=== PATIENT | male | born 1950 | race Caucasian/White ===

== ENCOUNTER 2019-09-21 11:00 | Emergency (ER) | payer MEDICARE, SELFPAY ==
--- NOTE | ~2019-09-21 | US_ITS ---
EXAMINATION: US venous doppler [facility] DATE: 09/21/2019 12:51 INDICATION: Lower limb swelling. TECHNIQUE: Grayscale ultrasound images without and with compression and Doppler ultrasound images of the bilateral lower extremity veins were obtained. COMPARISON: None. FINDINGS: The visualized portions of right common femoral vein, profunda (deep) femoral vein, femoral vein, pop liteal vein, peroneal veins, posterior tibial veins, and greater saphenous vein outflow are patent. The visualized portions of left common femoral vein, profunda femoral vein, femoral vein, popliteal v ein, peroneal veins, posterior tibial veins, and greater saphenous vein outflow are patent. IMPRESSION: 1. No deep venous thrombosis. Reviewed, dictated and finalized at location A. COVERER
--- NOTE | ~2019-09-21 | XR_ITS ---
EXAMINATION: XR chest 1V portable DATE: 09/21/2019 12:58 INDICATION: Cough. TECHNIQUE: A single frontal view of the chest was obtained. COMPARISON: None. FINDINGS: There is mild scarring at the lung apices. There are mild airspace opacities in right mid a nd lower lung zones. No pleural effusion or pneumothorax. The heart size is normal. IMPRESSION: 1. Mild airspace opacities in right mid and lower lung zones, consistent with atelectasis versus pneu monia. Reviewed, dictated and finalized at location A. TY PROFESSIONAL IMPRESSION: 1. Mild airspace opacities in right mid and lower lung zones, consistent with a telectasis versus pneumonia.
[2019-09-21 11:05] VITALS: BP 108/73; PULSE 94; RESP 18; TEMP 37; O2SAT 98
--- NOTE | 2019-09-21 11:09 | ECG_ITS ---
Measurements Intervals [place] Rate: 97 P: 44 IN: 115 QRS: 51 QRSD: 93 T: 45 QT: 310 QTc: 395 Interpretive Statements SINUS RHYTHM WITH SINUS ARRHYTHMIA WITH SHORT IN INTERVAL SUPRAVENTRICULAR BIGEMINY BASELINE ARTIFACT- I, III ABNORMAL ECG Electronically Signed On 09-21-2019 16:56:14 APPEALS ANALYST by Edmond Oswald D.O.
[2019-09-21 11:27] LABS: Basophils Absolute Auto 0.2 K/mm3 (0.0-0.1); Basophils Percent Auto 1.3 % (0.2-1.2); Eosinophils Absolute Auto 0.8 K/mm3 (0-0.3); Eosinophils Percent Auto 5.8 % (0-4.4); Hematocrit 39.8 % (42.0-52.0); Hemoglobin 13.1 g/dL (14.0-18.0); Immature Granulocyte Absolute 0.18 K/mm3 (0.00-0.031); Immature Granulocyte Percent A 1.4 % (0-0.5); Lymphocytes Absolute Auto 1.67 K/mm3 (0.9-3.2); Mean Corpuscular HGB Conc 32.9 g/dl (32-36); Mean Corpuscular Hemoglobin 31.4 pg (26-34); Mean Corpuscular Volume 95.4 fl (80-100); Mean Platelet Volume 9.3 fl (7.4-10.4); Neutrophils Absolute Auto 9.1 K/mm3 (1.3-6.7); Neutrophils Percent Auto 70.5 % (45.5-73.1); Platelet Count Result 254 k/mm3 (150-375); Red Blood Count 4.17 M/mm3 (4.6-6.20); Red Cell Distribution Width 13.8 % (11.5-14.5); White Blood Count 12.9 K/mm3 (4.5-10.0)
[2019-09-21 11:40] LABS: Alanine Aminotransferase 83 U/L (4-50); Albumin Level 4.4 g/dL (3.5-5.1); Alkaline Phosphatase 132 U/L (38-126); Aspartate Amino Transferase 61 U/L (17-59); Bilirubin,Total 0.5 mg/dL (0.2-1.3); Blood Urea Nitrogen 26 mg/dL (9-20); Calcium 10.1 mg/dL (8.4-10.2); Carbon Dioxide 26 mmol/L (22-30); Chloride 93 mmol/L (98-107); Estimated CRCL calculation 55 ml/min; Estimated Glomerular Filt Rate 60; Glucose 208 mg/dL (75-110); Potassium 4.7 mmol/L (3.4-5.0); Sodium 131 mmol/L (137-145)
--- NOTE | 2019-09-21 12:09 | PC.NURSE ---
This RN had to retrieve patient from outside smoking to take back to exam room.
--- NOTE | 2019-09-21 12:11 | ED.GENADULT ---
HPI - General Adult General Chief complaint: Unspecified Stated complaint: feet swelling Time Seen by Provider: 09/21/19 12:10 Source: patient Mode of arrival: wheelchair Limitations: no limitations History of Present Illness HPI narrative: Pt is a 69 y/o male who presents to the ED, via wheelchair, with c/o BLE swelling for 2 days. Pt states that he was D/C 8 days ago from [facility] after having a stroke. He has residual lt sided weakness from his stroke. Pt also has a H/o COPD and DM and he is still an every day smoker. He states that he is dizzy when he stands and his legs feel stiff. Pt denies SOB or a fever. He is supposed to get set up with a home health nurse. complaint: BLE swelling Onset (ago): day(s) (2) Location: lower extremity (PB) Associated symptoms: other (dizziness, PB leg stiffness) Review of Systems Review of Systems: All systems reviewed & are unremarkable except as noted in HPI and below Constitutional: Constitutional: Denies fever(s) Cardiovascular: Cardiovascular: Reports leg edema (bilateral) Respiratory: Respiratory: Denies dyspnea Musculoskeletal: Musculoskeletal: Reports stiffness (BLE) Neurologic: Reports dizziness PMFSH Past Medical History Medical History (Updated 09/21/19 @ 14:58 by Bj Bhandari DO) COPD (chronic obstructive pulmonary disease) CVA (cerebral vascular accident) Diabetes mellitus Surgical History Surgical History (Updated 09/21/19 @ 13:05 by Cleopatra Donahue) No significant past surgical history Social History Social History (Updated 09/21/19 @ 13:05 by Cleopatra Donahue) Smoking status: Current every day smoker Gender identity (if verbalized by the patient): Male Exam Narrative: Exam Narrative: APPEARANCE: No acute distress, nontoxic, resting in bed EYES: EOMI HEENT: Normocephalic, atraumatic, OMM RESPIRATORY: No respiratory distress Clear to auscultation bilaterally with no rhonchi wheezing or rales. CARDIOVASCULAR: Regular rate and rhythm without murmurs rubs or gallops. ABDOMINAL: Soft, nontender, nondistended, no rebound or guarding MUSCULOSKELETAl: Moves all extremities. No clubbing, cyanosis 2+ edema the bilateral lower extremities, no erythema, the bilateral calves soft and nontender, dorsalis pedis pulse 2+ bilaterally Neuro: Awake alert x3, following commands speech normal SKIN:: Warm, dry. No rashes lesions or abrasions PSYCHIATRIC: Normal affect/mood, Course Course Emergency Course: Following chest x-ray views reviewed with patient. Minimal cough no fevers suspect atelectasis and no pneumonia at this time Patient states that since his stroke he has recently been returned home. He states he is not up and moving as much but does have home health set up to come to his house. Discussed with patient results of workup and diagnosis. Discussed need for follow-up with primary care, proper use of medication, and reasons to return to the emergency department. Patient understands and agrees to current treatment plan Vital Signs Vital signs: Vital Signs Temperature 98.6 F 09/21/19 11:05 Pulse Rate 94 09/21/19 11:05 Respiratory Rate 18 09/21/19 11:05 Blood Pressure 108/73 09/21/19 11:05 Pulse Oximetry 98 09/21/19 11:05 Temperature 98.6 F 09/21/19 11:05 Pulse Rate 98 09/21/19 13:26 Respiratory Rate 18 09/21/19 13:26 Blood Pressure 128/87 09/21/19 13:26 Pulse Oximetry 98 09/21/19 13:26 Medical Decision Making Vital Signs Vital Signs: Vital Signs Temperature 98.6 F 09/21/19 11:05 Pulse Rate 94 09/21/19 11:05 Respiratory Rate 18 09/21/19 11:05 Blood Pressure 108/73 09/21/19 11:05 Pulse Oximetry 98 09/21/19 11:05 Temperature 98.6 F 09/21/19 11:05 Pulse Rate 98 09/21/19 13:26 Respiratory Rate 18 09/21/19 13:26 Blood Pressure 128/87 09/21/19 13:26 Pulse Oximetry 98 09/21/19 13:26 Lab Data Result diagrams: 09/21/19 11:15 09/21/19 11:15
--- NOTE | 2019-09-21 12:26 | PC.NURSE ---
Pt taken to ultrasound
[2019-09-21 13:06] LABS: NT Pro B Type Natriuretic Pept 30 PG/ML (5-100)
[2019-09-21 13:16] LABS: Add Urine Microscopic? NO; Appearance Urine Clear (Clear); Bilirubin Urine Negative (Negative); Blood Urine Negative (Negative); Color Urine Yellow (Yellow); Glucose Urine UA Negative (Negative); Ketones Urine Negative (Negative); Leukocyte Esterase Ur Negative LEU/UL (Negative); Nitrate Urine Negative (Negative); Protein Urine Negative (Negative); Specific Grav Ur 1.012 (1.001-1.035); Urobilinogen Urine Negative mg/dL (<2.0)
[2019-09-21 13:26] VITALS: BP 128/87; PULSE 98; RESP 18; O2SAT 98
[2019-09-21 13:26] LABS: Prothrombin Time 12.4 Seconds (11.1-14.7)
[2019-09-21 13:27] LABS: Partial Thromboplastin Time 29.7 SECONDS (22.3-36.8)
== END 2019-09-21 15:18 | disposition home or self-care (01) ==
PROVIDERS: Emergency Provider Emergency Medicine
DX: R60.0 Localized edema (principal); J44.9 Chronic obstructive pulmonary disease, unspecified; E11.9 Type 2 diabetes mellitus without complications; F17.210 Nicotine dependence, cigarettes, uncomplicated; R42 Dizziness and giddiness; I69.354 Hemiplegia and hemiparesis following cerebral infarction affecting left non-dominant side; R00.8 Other abnormalities of heart beat
CPT/HCPCS: 36415; 71045; 80053; 81003; 83880; 85025; 85610; 85730; 93005; 93970; 99284

== ENCOUNTER 2020-04-14 04:18 | Observation (INO) | payer MEDICARE, SELFPAY ==
[2020-04-14] VITALS (9 sets, daily range): BP systolic 97–126; BP diastolic 47–93; PULSE 55–99; RESP 16–18; TEMP 36.3–36.9; O2SAT 94–97
--- NOTE | ~2020-04-14 | XR_ITS ---
EXAMINATION: XR chest 1V portable EXAM DATE: 04/14/2020 04:49 INDICATION: Cough. TECHNIQUE: Frontal and lateral projections of the chest obtained and reviewed. Comparison is made to prior examination from 09/21/2019. FINDINGS: The lungs are clear. There are no pleural effusions. The cardiomediastinal silhouette is within normal limits. There is no pneumothorax suspected. The bones and soft tissues are unremarkab le. IMPRESSION: No acute cardiopulmonary findings. Reviewed, dictated and finalized at location A.
[2020-04-14 04:41] LABS: Basophils Absolute Auto 0.2 K/mm3 (0.0-0.1); Basophils Percent Auto 0.9 % (0.2-1.2); Eosinophils Absolute Auto 0.7 K/mm3 (0-0.3); Eosinophils Percent Auto 3.7 % (0-4.4); Hematocrit 36.4 % (42.0-52.0); Hemoglobin 12.1 g/dL (14.0-18.0); Immature Granulocyte Absolute 0.32 K/mm3 (0.00-0.031); Immature Granulocyte Percent A 1.7 % (0-0.5); Lymphocytes Absolute Auto 2.12 K/mm3 (0.9-3.2); Lymphocytes Percent Auto 11.3 % (18.3-44.2); Mean Corpuscular HGB Conc 33.2 g/dl (32-36); Mean Corpuscular Hemoglobin 30.6 pg (26-34); Mean Corpuscular Volume 92.2 fl (80-100); Mean Platelet Volume 8.8 fl (7.4-10.4); Monocytes Absolute Auto 1.1 K/mm3 (0.1-0.6); Monocytes Percent Auto 5.7 % (2.6-8.5); Neutrophils Absolute Auto 14.4 K/mm3 (1.3-6.7); Neutrophils Percent Auto 76.7 % (45.5-73.1); Platelet Count Result 404 k/mm3 (150-375); Red Blood Count 3.95 M/mm3 (4.6-6.20); Red Cell Distribution Width 13.7 % (11.5-14.5); White Blood Count 18.8 K/mm3 (4.5-10.0)
[2020-04-14 04:53] LABS: Anion Gap 7 mmol/L (8-16); Blood Urea Nitrogen 24 mg/dL (9-20); Calcium 9.3 mg/dL (8.4-10.2); Carbon Dioxide 27 mmol/L (22-30); Chloride 102 mmol/L (98-107); Estimated CRCL calculation 63 ml/min; Estimated Glomerular Filt Rate > 60; Glucose 127 mg/dL (75-110); Potassium 4.4 mmol/L (3.4-5.0); Sodium 136 mmol/L (137-145)
--- NOTE | 2020-04-14 05:15 | ED.GENADULT ---
HPI - General Adult General Chief complaint: Unspecified Stated complaint: C/O [facility] LIVING Time Seen by Provider: 04/14/20 04:51 History of Present Illness HPI narrative: Patient is a 69-year-old male who presents the ER with complaint of shortness of breath. Patient reports he is laying in bed at his [facility] when he developed shortness of breath. It lasts about 2 hours. He paged for the nurse to come and help him and it took him 3 hours to respond. He is no longer short of breath. He has no complaints of runny nose/sore throat/productive cough. Denies fever. No chest pain or chest pressure. He reports he ultimately just wants to leave the fdc would like for his son to come get him. He reports he is being worked up for ALS and has had a stroke in the past. Patient was just placed in the fdc yesterday after his son worked a couple of weeks to get him placed. Related Data Home Medications Medication Instructions Recorded Confirmed Unable to Obtain Home Medications 04/14/20 04/14/20 Allergies Allergy/AdvReac Type Severity Reaction Status Date / Time blueberry Allergy Rash Verified 04/14/20 05:55 Review of Systems Review of Systems: All systems reviewed & are unremarkable except as noted in HPI and below Constitutional: Constitutional: Denies chills, Denies fever(s) and Denies weakness ENT: Denies nasal congestion and Denies sore throat Cardiovascular: Cardiovascular: Denies chest pain Respiratory: Respiratory: Denies chest congestion, Denies cough, Reports dyspnea and Denies wheezing Gastrointestinal: Gastrointestinal: Denies abdominal pain, Denies nausea and Denies vomiting PMFSH Past Medical History Medical History (Updated 04/14/20 @ 06:42 by Dakotah Weston MD) COPD (chronic obstructive pulmonary disease) CVA (cerebral vascular accident) Diabetes mellitus Surgical History Surgical History (Updated 09/21/19 @ 13:05 by Cleopatra Donahue) No significant past surgical history Social History Social History (Updated 09/21/19 @ 13:05 by Cleopatra Donahue) Smoking status: Current every day smoker Gender identity (if verbalized by the patient): Male Exam Narrative: Exam Narrative: GENERAL: Well-appearing, well-nourished, and in no acute distress. HEAD: Normocephalic, atraumatic. ENT: Mucous membranes moist. CHEST: Clear to auscultation. No respiratory distress. HEART: Regular rate and rhythm. Normal peripheral pulses. ABDOMEN: Soft, nontender, nondistended. EXTREMITIES: Chronic weakness left upper and lower extremities. No deformity. Trace edema. SKIN: Warm, dry, no rash. NEURO: Alert and oriented x3. Course Course Emergency Course: Reports h/o UTI. Denying sx at this time. Will give ceftriaxone. Would benefit from obs and social service consult. Vital Signs Vital signs: Vital Signs Temperature 98.4 F 04/14/20 04:21 Pulse Rate 96 04/14/20 04:21 Respiratory Rate 18 04/14/20 04:21 Blood Pressure 121/47 L 04/14/20 04:21 Pulse Oximetry 94 04/14/20 04:21 Temperature 98.4 F 04/14/20 04:21 Pulse Rate 95 04/14/20 06:39 Respiratory Rate 16 04/14/20 06:39 Blood Pressure 114/69 04/14/20 06:39 Pulse Oximetry 95 04/14/20 06:39 Medical Decision Making Vital Signs Vital Signs: Vital Signs Temperature 98.4 F 04/14/20 04:21 Pulse Rate 96 04/14/20 04:21 Respiratory Rate 18 04/14/20 04:21 Blood Pressure 121/47 L 04/14/20 04:21 Pulse Oximetry 94 04/14/20 04:21 Temperature 98.4 F 04/14/20 04:21 Pulse Rate 95 04/14/20 06:39 Respiratory Rate 16 04/14/20 06:39 Blood Pressure 114/69 04/14/20 06:39 Pulse Oximetry 95 04/14/20 06:39 Lab Data Result diagrams: 04/14/20 04:36 04/14/20 04:36 Labs: Lab Results 04/14/20 04/14/20 04/14/20 Range/Units 04:36 04:36 05:06 WBC 18.8 H (4.5-10.0) K/mm3 RBC 3.95 L (4.6-6.20) M/mm3 Hgb 12.1 L (14.0-18.0) g/dL
[2020-04-14 05:21] LABS: Add Urine Microscopic? YES; Appearance Urine Cloudy (Clear); Bacteria Urine Trace /hpf; Bilirubin Urine Negative (Negative); Blood Urine 1+ (Negative); Color Urine Yellow (Yellow); Glucose Urine UA Negative (Negative); Ketones Urine Negative (Negative); Leukocyte Esterase Ur 3+ LEU/UL (Negative); Nitrate Urine Positive (Negative); Protein Urine Negative (Negative); Specific Grav Ur 1.016 (1.001-1.035); Urobilinogen Urine Negative mg/dL (<2.0); WBC Clumps Urine Present /HPF; WBC Urine 51-75 /hpf
[2020-04-14 11:58] LABS: Glucose Point of Care 166 (65-105)
[2020-04-14] MEDS: GABAPENTIN 300 MG CAPSULE PO ×2 (12:40→16:24)
[2020-04-14] MEDS: TAMSULOSIN HCL 0.4 MG CAPSULE PO (12:40)
[2020-04-14] MEDS: BACLOFEN 10 MG TABLET PO ×2 (12:40→16:25)
[2020-04-14] MEDS: FUROSEMIDE 20 MG TABLET PO (12:40)
[2020-04-14] MEDS: LOSARTAN POTASSIUM 100 MG TABLET PO (12:40)
[2020-04-14] MEDS: CLOPIDOGREL BISULFATE 75 MG TABLET PO (12:40)
[2020-04-14 17:07] LABS: Glucose Point of Care 100 (65-105)
--- NOTE | 2020-04-14 17:39 | PM.IMHP ---
H&P: HPI History of Present Illness Date/Time: 04/14/20 17:39 Chief complaint: UTI Narrative: Som Ordoñez is a 69 year old male admitted from [place]. did not feel well with sudden SOB called for help no one came so called ambulance. Pt found to have a UTI. Does have a history o f CVA and DM. No so happy to be in a NH. Just got placed there yesterday. Denies SOB now, or cough or fever. CXR looks nil acute. labs WCC is high UA is positive awaiting uC. Review of Systems Review of Systems: All systems reviewed & are unremarkable except as noted in HPI and below PMFSH Past Medical History Medical History COPD (chronic obstructive pulmonary disease) CVA (cerebral vascular accident) Diabetes mellitus Surgical History Surgical History No significant past surgical history Social History Social History Smoking packs per day: 2 Smoking cigarettes per day: 40.0 Years smoked: 50 Smoking pack-years: 100.00 Smoking status: Heavy tobacco smoker Tobacco type: cigarettes Substance use: never Substance use type: does not use Gender identity (if verbalized by the patient): Male Spiritual care concerns: No Meds Home Medications and Allergies Home Medications Medication Instructions Recorded Confirmed Type albuterol sulfate 2 puff INHALATION BID 04/14/20 04/14/20 History atorvastatin 10 mg PO HS 04/14/20 04/14/20 History baclofen 10 mg PO TID 04/14/20 04/14/20 History clopidogrel 75 mg PO DAILY 04/14/20 04/14/20 History furosemide 20 mg PO DAILY 04/14/20 04/14/20 History gabapentin 300 mg PO TID 04/14/20 04/14/20 History losartan 100 mg PO DAILY 04/14/20 04/14/20 History sitagliptin [Januvia] 50 mg PO DAILY 04/14/20 04/14/20 History tamsulosin [Flomax] 0.4 mg PO DAILY 04/14/20 04/14/20 History Allergies Allergy/AdvReac Type Severity Reaction Status Date / Time blueberry Allergy Rash Verified 04/14/20 05:55 Vital Signs Vital Signs - 24 hr 04/14/20 04:21 04/14/20 04:23 04/14/20 04:24 Temperature 36.9 C Pulse Rate 96 96 Respiratory Rate 18 17 Blood Pressure 121/47 L Pulse Oximetry 94 94 04/14/20 06:02 04/14/20 06:39 04/14/20 07:37 Temperature Pulse Rate 99 95 88 Respiratory Rate 18 16 16 Blood Pressure 117/66 114/69 126/93 H Pulse Oximetry 96 95 95 04/14/20 07:45 04/14/20 14:00 Temperature 36.7 C 36.3 C L Pulse Rate 91 55 L Respiratory Rate 18 18 Blood Pressure 115/66 97/54 L Pulse Oximetry 95 97 Exam Const: General: tired appearing HENMT: Head: normocephalic Eyes: General: appearance normal, both eyes and all related structures Pupils: Equal, round and reactive pupils present Neck: Neck: supple Chest: Chest palpation & inspection: normal inspection of the chest Resp: Effort & Inspection: normal respiratory effort Auscultation: clear to auscultation bilaterally Cardio: Jugular venous distension: no JVD Rhythm: regular rhythm Heart sounds: S1 normal heart sound present and S2 normal heart sound present GI: Inspection: normal to inspection GI Palp: No abdominal tenderness, Yes Soft to palpation and No Tenderness to palpation present (GI) Auscultation: normal bowel sounds : General: Yes no CVA tenderness Skin: General skin exam: normal color and dry skin Neuro: Cranial nerves: Yes CN's II-XII intact bilaterally and Yes Equal, round and reactive pupils present Cognition (Neuro): normal cognition Speech: normal speech Motor exam (neuro): 5/5 motor strength present throughout Extrem: General: normal to inspection Psych: Appearance: grossly normal Mental Status: mental status grossly normal H&P: Results Labs Labs: Short CBC 04/14/20 Range/Units 04:36 WBC 18.8 H (4.5-10.0) K/mm3 Hgb 12.1 L (14.0-18.0) g/dL Hct 36.4 L (42.0-52.0) % Plt Count 404 H D (150-3
[2020-04-14] MEDS: SILVERGEL (ELTA) 45 ML 1 APPLIC TOPICAL (18:47)
[2020-04-14] MEDS: ATORVASTATIN 10 MG TABLET PO (19:59)
[2020-04-14] MEDS: ALBUTEROL SULFATE (*SP) AEROSOL 1 PUFF 2 PUFF INHALATION (21:03)
[2020-04-14 22:46] LABS: Glucose Point of Care 160 (65-105)
[2020-04-15 06:00] VITALS: BP 99/60; PULSE 81; RESP 20; TEMP 37; O2SAT 94
[2020-04-15] MEDS: ALBUTEROL SULFATE (*SP) AEROSOL 1 PUFF 2 PUFF INHALATION ×2 (08:22→20:17)
[2020-04-15] MEDS: FUROSEMIDE 20 MG TABLET PO (08:49)
[2020-04-15] MEDS: CLOPIDOGREL BISULFATE 75 MG TABLET PO (08:49)
[2020-04-15] MEDS: BACLOFEN 10 MG TABLET PO ×3 (08:49→16:51)
[2020-04-15] MEDS: LOSARTAN POTASSIUM 100 MG TABLET PO (08:49)
[2020-04-15] MEDS: TAMSULOSIN HCL 0.4 MG CAPSULE PO (08:49)
[2020-04-15] MEDS: GABAPENTIN 300 MG CAPSULE PO ×3 (08:49→16:51)
[2020-04-15] MEDS: SILVERGEL (ELTA) 45 ML 1 APPLIC TOPICAL (08:50)
--- NOTE | 2020-04-15 12:10 | PM.IMPN ---
Progress Note: A&P Assessment and Plan (1) Acute UTI: Code(s): N39.0 - Urinary tract infection, site not specified Status: Acute Assessment and Plan: Pt is on iv rocephin day 2, pt to continue. awaiting UC. (2) Diabetes mellitus: Code(s): E11.9 - Type 2 diabetes mellitus without complications Status: Acute Assessment and Plan: SSI accuchecks, continue to monitor sugars. Continue pts home medications of sitagliptin (3) CVA (cerebral vascular accident): Code(s): I63.9 - Cerebral infarction, unspecified Status: Acute Assessment and Plan: Pt is on plavix can continue (4) COPD (chronic obstructive pulmonary disease): Code(s): J44.9 - Chronic obstructive pulmonary disease, unspecified Status: Acute Assessment and Plan: Chronic and stable pt is on a inhaler Subjective Date/time seen: 04/15/20 12:10 Interval history: Som Ordoñez is a 69 year old male admitted from [facility] with uti. Pt feels better, still not happy about going to [facility] after discharge. UC is still pending Review of Systems Review of Systems: All systems reviewed & are unremarkable except as noted in HPI and below Exam Const: General: cooperative and healthy appearing; No in distress Nutritional Appearance: overweight Orientation/consciousness: oriented to person HENMT: Head: normal to inspection Resp: Effort & Inspection: no respiratory distress Auscultation: no rhonchi and no wheezes Cardio: Rate: regular rate Rhythm: regular rhythm GI: Inspection: normal to inspection GI Palp: No abdominal tenderness, No Guarding due to palpation present (GI) and No Hepatomegaly present Auscultation: normal bowel sounds Neuro: General: oriented to person Objective Data Vital Signs Vital Signs: Vital Signs - 24 hr 04/14/20 14:00 04/14/20 21:22 04/15/20 06:00 Temperature 36.3 C L 36.4 C 37.0 C Pulse Rate 55 L 89 81 Respiratory Rate 18 16 20 Blood Pressure 97/54 L 102/60 99/60 L Pulse Oximetry 97 95 94 Intake/Output Intake/Output: Intake & Output 04/12/20 04/13/20 04/14/20 04/15/20 23:59 23:59 23:59 23:59 Intake Total 410 340 Output Total 100 300 Balance 310 40 Meds/Results Medications: Active Medications Generic Name Dose Route Start Last Admin Trade Name Freq PRN Reason Stop Dose Admin Acetaminophen 650 mg 04/14/20 06:33 Tylenol Tablet PO Q4H PRN Mild Pain (1-3) or Fever Hydrocodone Bitart/Acetaminophen 1 tab 04/14/20 06:33 [place] 5-325 Mg PO Q4H PRN Pain Rated 4-6 Albuterol 2 puff 04/14/20 08:00 04/15/20 08:22 Proventil Hfa INHALATION 2 puff Q12HRT TAPAN Administration Atorvastatin Calcium 10 mg 04/14/20 21:00 04/14/20 19:59 Lipitor PO 10 mg HS TAPAN Administration Baclofen 10 mg 04/14/20 13:00 04/15/20 08:49 Lioresal Po PO 10 mg TID TAPAN Administration Clopidogrel Bisulfate 75 mg 04/14/20 09:00 04/15/20 08:49 Plavix PO 75 mg DAILY TAPAN Administration Dextrose 12.5 gm 04/14/20 11:23 Dextrose 50% Syringe IV PUSH PRN PRN Hypoglycemia Protocol Furosemide 20 mg 04/14/20 09:00 04/15/20 08:49 Lasix Tablet PO 20 mg DAILY TAPAN Administration Gabapentin 300 mg 04/14/20 13:00 04/15/20 08:49 Neurontin PO 300 mg TID TAPAN Administration Glucagon 1 mg 04/14/20 11:23 Glucagon For Inj IM PRN PRN Hypoglycemia Protocol Glucose 15 gm 04/14/20 11:23 Glutose 15 PO PRN PRN Hypoglycemia Protocol Ceftriaxone Sodium/Dextrose 1 gm in 50 mls @ 100 mls/hr 04/15/20 09:00 Rocephin 1 Gm/D5w 50 Ml IVPB DAILY TAPAN Dextrose 1,000 mls @ 100 mls/hr 04/14/20 11:23 Dextrose 5% 1,000 Ml IVPB PRN PRN Hypoglycemia Protocol Insulin Aspart 2 - 5 units 04/14/20 12:00 04/15/20 08:48 Novolog SUB-Q Not Given TIDWM TAPAN Protocol Losartan Potassium 100 mg 04/14/20 09:00 04/15/20
[2020-04-15 12:18] LABS: Glucose Point of Care 110 (65-105)
[2020-04-15 12:31] LABS: Glucose Point of Care 162 (65-105)
[2020-04-15 14:00] VITALS: BP 100/52; PULSE 87; RESP 16; TEMP 37.1; O2SAT 95
[2020-04-15 16:56] LABS: Glucose Point of Care 129 (65-105)
[2020-04-15 19:29] LABS: SARS-CoV-2 RNA PCR Negative
[2020-04-15 22:00] VITALS: BP 118/61; PULSE 79; RESP 18; TEMP 36.6; O2SAT 98
[2020-04-15] MEDS: ATORVASTATIN 10 MG TABLET PO (22:16)
[2020-04-16 03:39] LABS: Glucose Point of Care 131 (65-105)
[2020-04-16 05:57] VITALS: BP 101/58; PULSE 78; RESP 20; TEMP 36.5; O2SAT 95
[2020-04-16 06:46] LABS: Hematocrit 35.8 % (42.0-52.0); Hemoglobin 11.5 g/dL (14.0-18.0); Mean Corpuscular HGB Conc 32.1 g/dl (32-36); Mean Corpuscular Hemoglobin 29.9 pg (26-34); Mean Corpuscular Volume 93.2 fl (80-100); Mean Platelet Volume 8.8 fl (7.4-10.4); Platelet Count Result 343 k/mm3 (150-375); Red Blood Count 3.84 M/mm3 (4.6-6.20); Red Cell Distribution Width 13.9 % (11.5-14.5); White Blood Count 12.1 K/mm3 (4.5-10.0)
[2020-04-16 07:03] LABS: Anion Gap 4 mmol/L (8-16); Blood Urea Nitrogen 25 mg/dL (9-20); Calcium 8.9 mg/dL (8.4-10.2); Carbon Dioxide 28 mmol/L (22-30); Chloride 104 mmol/L (98-107); Estimated CRCL calculation 57 ml/min; Estimated Glomerular Filt Rate > 60; Glucose 122 mg/dL (75-110); Potassium 4.2 mmol/L (3.4-5.0); Sodium 136 mmol/L (137-145)
[2020-04-16 08:00] VITALS: PULSE 78; RESP 20; O2SAT 95
[2020-04-16] MEDS: ALBUTEROL SULFATE (*SP) AEROSOL 1 PUFF 2 PUFF INHALATION ×2 (08:03→20:02)
[2020-04-16] MEDS: CLOPIDOGREL BISULFATE 75 MG TABLET PO (10:02)
[2020-04-16] MEDS: FUROSEMIDE 20 MG TABLET PO (10:02)
[2020-04-16] MEDS: LOSARTAN POTASSIUM 100 MG TABLET PO (10:02)
[2020-04-16] MEDS: GABAPENTIN 300 MG CAPSULE PO ×3 (10:02→17:41)
[2020-04-16] MEDS: BACLOFEN 10 MG TABLET PO ×3 (10:02→17:41)
[2020-04-16] MEDS: SILVERGEL (ELTA) 45 ML 1 APPLIC TOPICAL (10:03)
[2020-04-16] MEDS: TAMSULOSIN HCL 0.4 MG CAPSULE PO (10:03)
[2020-04-16 12:15] LABS: Glucose Point of Care 211 (65-105)
[2020-04-16] MEDS: INSULIN ASPART (*BKC) 100 UNITS/ML SUB-Q (13:14)
[2020-04-16 14:00] VITALS: BP 91/51; PULSE 80; RESP 16; TEMP 36.6; O2SAT 98
--- NOTE | 2020-04-16 16:53 | PM.IMPN ---
Progress Note: A&P Assessment and Plan (1) Acute UTI: Code(s): N39.0 - Urinary tract infection, site not specified Status: Acute Assessment and Plan: Pt is on iv rocephin day 3, pt to continue. Som Ordoñez is a 69 year old male admitted from [facility] with uti. Pt feels better, still not happy about going to [facility] after discharge. urine culture is growing E coli pansensitive will continue Rocephin, patient clinically symptoms are improving, patient white count is trending denies any fever or chills will continue IV antibiotics until Saturday and discharge patient back to fdc, will have a PT OT evaluate the patient (2) Diabetes mellitus: Code(s): E11.9 - Type 2 diabetes mellitus without complications Status: Acute Assessment and Plan: SSI accuchecks, continue to monitor sugars. Continue pts home medications of sitagliptin (3) CVA (cerebral vascular accident): Code(s): I63.9 - Cerebral infarction, unspecified Status: Acute Assessment and Plan: Pt is on plavix can continue (4) COPD (chronic obstructive pulmonary disease): Code(s): J44.9 - Chronic obstructive pulmonary disease, unspecified Status: Acute Assessment and Plan: Chronic and stable pt is on a inhaler Subjective Date/time seen: 04/16/20 16:53 Interval history: Som Ordoñez is a 69 year old male admitted from [facility]. with uti. Pt feels better, still not happy about going to [facility] after discharge. urine culture is growing E coli pansensitive will continue Rocephin, patient clinically symptoms are improving, patient white count is trending denies any fever or chills will continue IV antibiotics until Saturday and discharge patient back to fdc, will have a PT OT evaluate the patient Review of Systems Review of Systems: All systems reviewed & are unremarkable except as noted in HPI and below Exam Narrative: Exam Narrative: elderly frail chronically ill Const: General: no acute distress and uncomfortable HENMT: General nose exam: Normal nares present Mouth: Yes moist mucous membranes Eyes: General: appearance normal, both eyes and all related structures Sclera: sclerae normal Neck: Neck: supple Resp: Effort & Inspection: normal respiratory effort Auscultation: clear to auscultation bilaterally Cardio: Rate: regular rate Rhythm: regular rhythm GI: Auscultation: normal bowel sounds Skin: General skin exam: normal color Neuro: Speech: normal speech Sensory Exam: normal sensation Extrem: General: normal to inspection Psych: Affect: Anxious affect present Objective Data Vital Signs Vital Signs: Vital Signs - 24 hr 04/15/20 22:00 04/16/20 05:57 04/16/20 08:00 Temperature 97.8 F 97.7 F Pulse Rate 79 78 78 Respiratory Rate 18 20 20 Blood Pressure 118/61 101/58 L Pulse Oximetry 98 95 95 04/16/20 14:00 Temperature 97.9 F Pulse Rate 80 Respiratory Rate 16 Blood Pressure 91/51 L Pulse Oximetry 98 Intake/Output Intake/Output: Intake & Output 04/13/20 04/14/20 04/15/20 04/16/20 23:59 23:59 23:59 23:59 Intake Total 410 1000 500 Output Total 100 350 Balance 310 650 500 Meds/Results Medications: Active Medications Generic Name Dose Route Start Last Admin Trade Name Freq PRN Reason Stop Dose Admin Acetaminophen 650 mg 04/14/20 06:33 Tylenol Tablet PO Q4H PRN Mild Pain (1-3) or Fever Hydrocodone Bitart/Acetaminophen 1 tab 04/14/20 06:33 [place] 5-325 Mg PO Q4H PRN Pain Rated 4-6 Albuterol 2 puff 04/14/20 08:00 04/16/20 08:03 Proventil Hfa INHALATION 2 puff Q12HRT TAPAN Administration Atorvastatin Calcium 10 mg 04/14/20 21:00 04/15/20 22:16 Lipitor PO 10 mg HS TPAAN Administration Baclofen 10 mg 04/14/20 13:00 04/16/20 13:15 Lioresal Po PO 10 mg TID TAPAN Administration Clopidogrel Bisulfate 75 mg 04/14/20 09:00 04/16/20 10:02 Plavix PO 75 mg DAILY [facility] Administratio
[2020-04-16 17:51] LABS: Glucose Point of Care 124 (65-105)
[2020-04-16 18:25] VITALS: BP 100/62
[2020-04-16] MEDS: ATORVASTATIN 10 MG TABLET PO (20:47)
[2020-04-16 21:50] LABS: Glucose Point of Care 181 (65-105)
[2020-04-16 22:00] VITALS: BP 102/56; PULSE 81; RESP 18; TEMP 36.7; O2SAT 95
[2020-04-17 06:00] VITALS: BP 100/56; PULSE 82; RESP 20; TEMP 36.8; O2SAT 95
[2020-04-17 08:00] VITALS: PULSE 82; RESP 20; O2SAT 95
[2020-04-17 08:00] LABS: Glucose Point of Care 121 (65-105)
[2020-04-17] MEDS: LOSARTAN POTASSIUM 100 MG TABLET PO (08:58)
[2020-04-17] MEDS: TAMSULOSIN HCL 0.4 MG CAPSULE PO (08:59)
[2020-04-17] MEDS: GABAPENTIN 300 MG CAPSULE PO ×3 (08:59→17:29)
[2020-04-17] MEDS: BACLOFEN 10 MG TABLET PO ×3 (08:59→17:29)
[2020-04-17] MEDS: CLOPIDOGREL BISULFATE 75 MG TABLET PO (08:59)
[2020-04-17] MEDS: FUROSEMIDE 20 MG TABLET PO (09:00)
[2020-04-17] MEDS: SILVERGEL (ELTA) 45 ML 1 APPLIC TOPICAL (09:00)
[2020-04-17] MEDS: ALBUTEROL SULFATE (*SP) AEROSOL 1 PUFF 2 PUFF INHALATION ×2 (09:40→21:24)
[2020-04-17 11:53] LABS: Glucose Point of Care 173 (65-105)
[2020-04-17 14:00] VITALS: BP 109/63; PULSE 82; RESP 16; TEMP 36.8; O2SAT 98
--- NOTE | 2020-04-17 14:28 | PM.IMPN ---
Progress Note: A&P Assessment and Plan (1) Acute UTI: Code(s): N39.0 - Urinary tract infection, site not specified Status: Acute Assessment and Plan: Som Ordoñez is a 69 year old male admitted from [place] with [place]i. Pt feels better, still not happy about going to [place] after discharge. urine culture is growing E coli pansensitive will continue Rocephin, patient clinically symptoms are improving, patient white count is trending denies any fever or chills will continue IV antibiotics until Saturday and discharge patient back to longterm, Patient has no new complaints, will have a PT OT evaluate the patient (2) Diabetes mellitus: Code(s): E11.9 - Type 2 diabetes mellitus without complications Status: Acute Assessment and Plan: SSI accuchecks, continue to monitor sugars. Continue pts home medications of sitagliptin (3) CVA (cerebral vascular accident): Code(s): I63.9 - Cerebral infarction, unspecified Status: Acute Assessment and Plan: Pt is on plavix can continue (4) COPD (chronic obstructive pulmonary disease): Code(s): J44.9 - Chronic obstructive pulmonary disease, unspecified Status: Acute Assessment and Plan: Chronic and stable pt is on a inhaler Subjective Date/time seen: 04/17/20 14:28 Interval history: Som Ordoñez is a 69 year old male [place] with [place]i. Pt feels better, still not happy about going to [place] after discharge. urine culture is growing E coli pansensitive will continue Rocephin, patient clinically symptoms are improving, patient white count is trending denies any fever or chills will continue IV antibiotics until Saturday and discharge patient back to longterm, Patient has no new complaints, will have a PT OT evaluate the patient Review of Systems Review of Systems: All systems reviewed & are unremarkable except as noted in HPI and below Exam Const: General: comfortable and no acute distress HENMT: General nose exam: Normal nares present Mouth: Yes moist mucous membranes Eyes: General: appearance normal, both eyes and all related structures Sclera: sclerae normal Neck: Neck: supple Resp: Effort & Inspection: normal respiratory effort Auscultation: clear to auscultation bilaterally Cardio: Rate: regular rate Rhythm: regular rhythm GI: Auscultation: normal bowel sounds Skin: General skin exam: normal color Neuro: Speech: normal speech Sensory Exam: normal sensation Extrem: General: normal to inspection Psych: Affect: Anxious affect present Objective Data Vital Signs Vital Signs: Vital Signs - 24 hr 04/16/20 18:25 04/16/20 22:00 04/17/20 06:00 Temperature 98.0 F 98.2 F Pulse Rate 81 82 Respiratory Rate 18 20 Blood Pressure 100/62 102/56 L 100/56 L Pulse Oximetry 95 95 04/17/20 08:00 Temperature Pulse Rate 82 Respiratory Rate 20 Blood Pressure Pulse Oximetry 95 Intake/Output Intake/Output: Intake & Output 04/14/20 04/15/20 04/16/20 04/17/20 23:59 23:59 23:59 23:59 Intake Total 410 1000 1040 440 Output Total 100 350 500 Balance 310 650 540 440 Meds/Results Medications: Active Medications Generic Name Dose Route Start Last Admin Trade Name Freq PRN Reason Stop Dose Admin Acetaminophen 650 mg 04/14/20 06:33 Tylenol Tablet PO Q4H PRN Mild Pain (1-3) or Fever Hydrocodone Bitart/Acetaminophen 1 tab 04/14/20 06:33 [place] 5-325 Mg PO Q4H PRN Pain Rated 4-6 Albuterol 2 puff 04/14/20 08:00 04/17/20 09:40 Proventil Hfa INHALATION 2 puff Q12HRT TAPAN Administration Atorvastatin Calcium 10 mg 04/14/20 21:00 04/16/20 20:47 Lipitor PO 10 mg HS TAPAN Administration Baclofen 10 mg 04/14/20 13:00 04/17/20 12:43 Lioresal Po PO 10 mg TID TAPAN Administration Clopidogrel Bisulfate 75 mg 04/14/20 09:00 04/17/20 08:59 Plavix PO 75 mg DAILY TAPAN Administration Dextrose 12.5 gm 04/14/20 11:23 Dextro
[2020-04-17 17:58] LABS: Glucose Point of Care 167 (65-105)
[2020-04-17] MEDS: ATORVASTATIN 10 MG TABLET PO (20:46)
[2020-04-17 21:24] VITALS: PULSE 73; RESP 18
[2020-04-17 22:00] VITALS: BP 100/54; PULSE 72; RESP 16; TEMP 36.4; O2SAT 98
[2020-04-17 22:24] LABS: Glucose Point of Care 135 (65-105)
[2020-04-18 06:00] VITALS: BP 105/53; PULSE 83; RESP 16; TEMP 36.8; O2SAT 95
[2020-04-18] MEDS: ALBUTEROL SULFATE (*SP) AEROSOL 1 PUFF 2 PUFF INHALATION (08:12)
[2020-04-18 08:45] LABS: Glucose Point of Care 133 (65-105)
[2020-04-18] MEDS: LOSARTAN POTASSIUM 100 MG TABLET PO (09:39)
[2020-04-18] MEDS: TAMSULOSIN HCL 0.4 MG CAPSULE PO (09:39)
[2020-04-18] MEDS: GABAPENTIN 300 MG CAPSULE PO ×2 (09:39→13:11)
[2020-04-18] MEDS: CLOPIDOGREL BISULFATE 75 MG TABLET PO (09:39)
[2020-04-18] MEDS: BACLOFEN 10 MG TABLET PO ×2 (09:39→13:11)
[2020-04-18] MEDS: SILVERGEL (ELTA) 45 ML 1 APPLIC TOPICAL (09:40)
[2020-04-18] MEDS: FUROSEMIDE 20 MG TABLET PO (09:40)
[2020-04-18 11:28] VITALS: BMI 22.8
[2020-04-18 12:51] LABS: Glucose Point of Care 128 (65-105)
--- NOTE | 2020-04-18 13:31 | PM.DS ---
DS: Admitting Diagnosis Admitting Diagnosis Admitting Diagnosis: UTI DS: Discharge Diagnosis Discharge Diagnosis (1) Acute UTI: Code(s): N39.0 - Urinary tract infection, site not specified Status: Acute Assessment and Plan: Som Ordoñez is a 69 year old male admitted from [place] with uti. Pt feels better, still not happy about going to [place] after discharge. urine culture is growing E coli pansensitive will continue Rocephin, patient clinically symptoms are improving, patient white count is trending denies any fever or chills will continue IV antibiotics until Saturday and discharge patient back to custodial, Patient has no new complaints, will have a PT OT evaluate the patient (2) Diabetes mellitus: Code(s): E11.9 - Type 2 diabetes mellitus without complications Status: Acute Assessment and Plan: SSI accuchecks, continue to monitor sugars. Continue pts home medications of sitagliptin (3) CVA (cerebral vascular accident): Code(s): I63.9 - Cerebral infarction, unspecified Status: Acute Assessment and Plan: Pt is on plavix can continue (4) COPD (chronic obstructive pulmonary disease): Code(s): J44.9 - Chronic obstructive pulmonary disease, unspecified Status: Acute Assessment and Plan: Chronic and stable pt is on a inhaler DS: Summary Hospital Course Reason for hospitalization: Chief complaint: UTI Narrative: Som Ordoñez is a 69 year old male admitted from [place]. did not feel well with sudden SOB called for help no one came so called ambulance. Pt found to have a UTI. Does have a history o f CVA and DM. No so happy to be in a [place]. Just got placed there yesterday. Denies SOB now, or cough or fever. CXR looks nil acute. labs WCC is high UA is positive awaiting uC. Hospital Course: Som Ordoñez is a 69 year old male admitted from [place] with uti. Pt feels better, still not happy about going to [place] after discharge. urine culture is growing E coli pansensitive will continue Rocephin, patient clinically symptoms are improving, patient white count is trending denies any fever or chills will continue IV antibiotics until Saturday and discharge patient back to custodial, Patient has no new complaints, will have a PT OT evaluate the patient, patient is clinically stable will discharge back to nursing Status at Discharge Functional status at discharge: uses cane/walker Overall status at discharge: patient is back to baseline Time Spent with Patient Time attestation: Total time spent providing and/or coordinating discharge services: Patient was seen and examined at the time of the discharge Condition at discharge is stable Code status: Full code. Time spent preparing discharge summary, discharge medications, discussing discharge planning with field nurse case manager and patient is 35 minutes. Time spent: Greater than 30 minutes Exam Const: General: comfortable and no acute distress HENMT: General nose exam: Normal nares present Mouth: Yes moist mucous membranes Eyes: Sclera: sclerae normal Neck: Neck: supple Resp: Effort & Inspection: normal respiratory effort Auscultation: clear to auscultation bilaterally Cardio: Rate: regular rate Rhythm: regular rhythm GI: GI Palp: Yes Soft to palpation Auscultation: normal bowel sounds Skin: General skin exam: normal color Neuro: Sensory Exam: normal sensation Extrem: General: normal to inspection Psych: Affect: Anxious affect present DS: Data Data Completed and Pending Labs on day of discharge: Labs from last 24 hours 04/18/20 04/18/20 04/17/20 12:48 08:36 20:43 POC Capillary Glucose 128 H 133 H 135 H 04/17/20 17:52 POC Capillary Glucose 167 H Discharge Plan Discharge Attending physician on discharge: Macario Zavala Consulting providers: [facility] ; Paul Martinez ; Ester Nunez Discharging Clinician: Macario Zavala Patient Disposition: [place] [facility]
[2020-04-18 14:00] VITALS: BP 96/51; PULSE 79; RESP 18; TEMP 36.7; O2SAT 94
== END 2020-04-18 15:45 ==
LOC: ANHED 06:42 → ANH3MEDSUR 06:42
PROVIDERS: Family Medicine; Admitting Provider Internal Medicine; Emergency Provider Emergency Medicine; PCP Internal Medicine; Visit Provider Family Medicine
DX: N39.0 Urinary tract infection, site not specified (principal); B96.20 Unspecified Escherichia coli [E. coli] as the cause of diseases classified elsewhere; Z20.828 Contact with and (suspected) exposure to other viral communicable diseases; E11.9 Type 2 diabetes mellitus without complications; J44.9 Chronic obstructive pulmonary disease, unspecified; F17.210 Nicotine dependence, cigarettes, uncomplicated; Z86.73 Personal history of transient ischemic attack (TIA), and cerebral infarction without residual deficits; Z79.899 Other long term (current) drug therapy
CPT/HCPCS: 36415; 71045; 80048; 81001; 83036; 85025; 85027; 87077; 87086; 87088; 87186; 87635; 94640; 96365; 96366; 96376; 97110; 97161; 97165; 97530; 97535; 99285; A9270; C9803; G0378; J0696; J1815; U0003